=== PATIENT | female | born 1995 | race Caucasian/White ===

== ENCOUNTER → 2025-07-22 11:39 | Outpatient (REF) | payer OTHER, SELFPAY | LOC: RAD 11:39 | PROVIDERS: ATTENDING PHYSICIAN Specialist; FAMILY PHYSICIAN Physician Assistant Medical | DX: R22.1 Localized swelling, mass and lump, neck (principal); R22.2 Localized swelling, mass and lump, trunk | CPT/HCPCS: 72126; 72129; Q9967 ==